=== PATIENT | male | born 1965 | race Caucasian/White ===

== ENCOUNTER 2016-12-06 10:38 | Emergency (ER) | payer SELFPAY ==
[~2016-12-06] VITALS: Ht 182.9 cm; Wt 81.6 kg
[~2016-12-06 10:38] MED LIST: LORazepam Inj 2mg/ml 1ml ONE; UNOBMED
--- NOTE | 2016-12-06 13:17 | Emergency Room Report ---
History of Present Illness General Chief Complaint: Alcohol Intoxication Source: Patient, EMS Present Illness HPI 51 YOM [address] for alleged ETOH intoxication. Bystanders called EMS because patient was lying on street. Patient endorses ETOH. Denies trauma, taking other drugs. Allergies: Coded Allergies: UNABLE TO ASSESS (Unverified , 12/06/16) Patient History Past Medical History: other Past Surgical History: unable to obtain Pertinent Family History: unable to obtain Social History: Reports: alcohol use Immunizations: UTD Reviewed Nursing Documentation: PMH: Agreed, PSxH: Agreed Nursing Documentation-PMH Past Medical History Deferred: Pt Cognitively Impaired Review of Systems All Other Systems: limited - unable to obtain, ETOH Physical Exam Vital Signs Date Time Temp Pulse Resp B/P Pulse Ox O2 Delivery O2 Flow Rate FiO2 12/06/16 10:32 98.1 80 16 106/64 99 Room Air Sp02 EP Interpretation: reviewed, normal General Appearance: well appearing, no apparent distress, alert, non-toxic, other - +AOB, intermittently combative with staff, spitting Head: normocephalic, atraumatic Eyes: bilateral eye EOMI, bilateral eye PERRL ENT: normal ENT inspection, hearing grossly normal, normal voice, TMs + canals normal, uvula midline, dry mucus membranes Neck: normal inspection, full range of motion, supple, no bony tend Respiratory: normal inspection, lungs clear, normal breath sounds, no respiratory distress, no retraction, no wheezing Cardiovascular #1: regular rate, rhythm, no edema Gastrointestinal: normal inspection, normal bowel sounds, non tender, soft, no guarding, no hernia Genitourinary: no CVA tenderness Musculoskeletal: normal inspection, back normal, normal range of motion, Neyda' s Sign negative Neurologic: normal inspection, alert, responsive, 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 Afebrile. Atraumatic. Patient repeatedly trying to get out of stretcher and ambulate with unsteady gait - required IM ativan for sedation and soft wrist restraints for his safety Likely acute on chronic ETOH intoxication Denies other drugs Denies any pain Patient was provided safe place for sobriety in the ED with serial VS check, serial exams to monitor for safety and sobriety Tolerating PO - asked for and received food Ambulating with steady gait at DC but did not wait for DC instructions Last Vital Signs Date Time Temp Pulse Resp B/P Pulse Ox O2 Delivery O2 Flow Rate FiO2 12/06/16 10:32 98.1 80 16 106/64 99 Room Air Status: improved Disposition: HOME, SELF-CARE Referrals: NOT CHOSEN IPA/,REFERRING (PCP) YVETTE BELLO M.D. Dec 06, 2016 13:17
[2016-12-06 15:08] VITALS: BP 106/64
== END 2016-12-06 14:30 | disposition home or self-care (01) ==
LOC: EDBD 10:38 → EMR 11:05
DX: F10.120 Alcohol abuse with intoxication, uncomplicated (principal)
CPT/HCPCS: 99284